=== PATIENT | male | born 1945 | race Caucasian/White ===

== ENCOUNTER → 2016-05-28 | Outpatient (CLI) | payer MEDICARE, BC ==
[~2016-05-28] MED LIST: ASCO-285 PO; ASPI-558 PO; FISH1CAP49 PO; KETO75CA PO; LISI-127 PO; MULT-795 PO; OMEP20TA24 PO; TRAM-277 PO; VERA240C5 PO
--- NOTE | 2016-05-28 09:30 | DI ---
Indication: ITS.REASON: R10.13 ABD PAIN; R10.9 ABD PAIN PROCEDURE: US GALLBLADDER: Encounter: Initial Comparison: None Technique: Grayscale and color Doppler sonographic imaging of the right upper quadrant of the abdomen was performed. Findings: Hepatic parenchyma is homogeneous without evidence for focal mass. The gallbladder is normal. There is no wall thickening, pericholecystic fluid, sonographic Diaz's sign or cholelithiasis. Both the intra and extrahepatic biliary system are of normal caliber with the common duct measuring 4 mm in dimension. Pancreas is not well seen due to shadowing bowel gas. The right kidney is present without collecting system dilatation. The right kidney measures 11.4 cm in length. Impression: Negative right upper quadrant sonogram. .
== END ==
LOC: IMA 06:29
PROVIDERS: ATTEND Family Medicine
DX: R10.13 Epigastric pain (principal)